=== PATIENT | female | born 1940 | race Caucasian/White ===

== ENCOUNTER 2018-01-20 21:11 | Emergency (ER) | payer OTHER ==
[~2018-01-20] VITALS: Ht 162.6 cm; Wt 64.2 kg
[2018-01-20 21:53] LABS: HEMATOCRIT 38.6 % (36.0-46.0); HEMOGLOBIN 13.2 G/DL (11.9-15.5); MCH 33.4 PG (29.0-34.0); MCHC 34.2 G/DL (30.0-36.0); MCV 97.7 FL (83-99); PLATELET COUNT 221 K/uL (156-360); RBC DIS.WIDTH-CV 14.6 % (11.8-14.6); RBC DIS.WIDTH-SD 52.2 % (39-53); RED BLOOD COUNT 3.95 M/uL (3.80-5.20); WHITE BLOOD COUNT 10.6 K/uL (4.1-10.2)
[2018-01-20 22:06] LABS: ALBUMIN 4.1 g/dL (3.2-4.8); CHLORIDE 101 mEq/L (99-109); SODIUM 136 mEq/L (136-147)
[2018-01-20 22:08] LABS: GLUCOSE 104 mg/dL (70-99)
[2018-01-20 22:09] LABS: TOTAL PROTEIN 6.5 g/dL (6.4-8.3)
[2018-01-20 22:10] LABS: TOTAL BILIRUBIN 0.4 mg/dL (0.0-1.0)
[2018-01-20 22:12] LABS: ALKALINE PHOSPHATASE 61 IU/L (3-129); CREATININE 0.8 mg/dL (0.6-1.3); GFR ESTIMATE (CALCULATED) > 59 mL/min/
[2018-01-20 22:13] LABS: UREA NITROGEN (BUN) 10 mg/dL (9-23)
[2018-01-20 22:14] LABS: AST (GOT) 23 IU/L (2-34)
[2018-01-20 22:15] LABS: ALT (GPT) 19 IU/L (3-49)
[2018-01-20 22:16] LABS: LIPASE 37 U/L (1.0-51.0)
[2018-01-20 22:20] LABS: TROP-I INTERPRETATION NEGATIVE; TROPONIN-I < 0.01 ng/mL (0.0-0.30)
[2018-01-20] MEDS ORDERED: PROVENTIL HFA6.7 GM IH (23:19)
[2018-01-20] MEDS ORDERED: BACTRIM,SEPT1 TABLET PO (23:19)
[2018-01-21 00:07] VITALS: BP 142/81
== END 2018-01-21 00:11 | disposition home or self-care (01) ==
LOC: EME 21:11
PROVIDERS: Emergency Medicine
DX: J98.9 Respiratory disorder, unspecified (principal); K21.9 Gastro-esophageal reflux disease without esophagitis; R30.0 Dysuria; R05 Cough; Z87.891 Personal history of nicotine dependence
CPT/HCPCS: 71046; 80053; 83690; 84484; 85027; 94640; 99281; 99284